=== PATIENT | female | born 1955 | race Caucasian/White ===

== ENCOUNTER → 2019-11-15 10:30 | Outpatient (BNVA) | payer MEDICARE, MEDICAID, SELFPAY | PROVIDERS: Family Provider Family Medicine; PCP Family Medicine; Visit Provider Family Medicine | DX: I10 Essential (primary) hypertension (principal); E78.5 Hyperlipidemia, unspecified; E11.9 Type 2 diabetes mellitus without complications | CPT/HCPCS: 80053; 80061; 82044; 83036; 85025 ==

== ENCOUNTER 2020-07-13 11:49 | Emergency (ER) | payer MEDICARE, MEDICAID, SELFPAY ==
[2020-07-13 11:49] VITALS: BP 119/65; PULSE 78; RESP 16; TEMP 36.5; O2SAT 98; BMI 34.0
--- NOTE | 2020-07-13 11:56 | ECG_ITS ---
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 Measurements Intervals [place] Rate: 74 P: 36 AK: 192 QRS: -38 QRSD: 82 T: 20 QT: 378 QTc: 422 Interpretive Statements SINUS RHYTHM LEFT AXIS DEVIATION [QRS AXIS < -30] PATTERN CONSISTENT WITH PULMONARY DISEASE MODERATE VOLTAGE CRITERIA FOR LVH, CONSIDER NORMAL VARIANT [MEETS CRITERIA IN ONE OF: R(aVL), S(V1), R(V5), R(V5/V6)+S(V1)] No previous ECG available for comparison Electronically Signed On 07-13-2020 17:22:04 AIR HOSE COUPLER by Selina Lambert M.D. [id number]
--- NOTE | 2020-07-13 11:56 | XRR_ITS ---
PROCEDURE INFORMATION: Exam: XR Chest, 1 View Exam date and time: 07/13/2020 11:57 AM Age: 64 years old Clinical indication: Cough and dyspnea; Additional info: Dyspnea/cough TECHNIQUE: Imaging protocol: XR of the chest Views: 1 view. COMPARISON: No relevant prior studies available. FINDINGS: Lungs: See Pleural space finding. Pleural space: Subtle platelike atelectasis versus scarring left costophrenic angle. Lungs are otherwise well aerated. Heart/Mediastinum: Unremarkable. No cardiomegaly. Bones/joints: Kelsey rods and pedicle plates stabilizing the thoracic spine. XR/XR chest 1V portable [id number] IMPRESSION: Subtle platelike atelectasis versus scarring left costophrenic angle. Lungs are otherwise well aerated.
--- NOTE | 2020-07-13 12:04 | CT_ITS ---
WS: [id number] CT ABDOMEN PELVIS TECHNIQUE: Contrast-enhanced CT of the abdomen and pelvis with coronal and sagittal reformatted image s. CLINICAL INFORMATION: abd pain COMPARISON: None. DLP: 954.[address] scans at [facility] use at least one of these dose optimization techniques: automat ed exposure control; mA and/or kV adjustment per patient size (includes targeted exams where dose is matched to clinical indication); or iterative reconstruction. FINDINGS: Hepatomegaly. Diffuse fatty infiltration of the liver. Normal GE junction. Lung bases are well aerate d. Mild fatty atrophy of the pancreas. Normal spleen. Adrenal glands are normal. No hydronephrosis. Sigmoid constipation. Sigmoid diverticulosis. No evidence of acute diverticulitis. No evidence of hig h-grade small or large bowel obstruction. Normal renal parenchymal enhancement. No hydronephrosis in either kidney. Mild renal cortical atrophy . Normal caliber abdominal aorta. Aortic calcification. Postoperative changes partially visualized pe dicle screw fixation in the lower thoracic and upper lumbar spine. Mild chronic appearing biconcave c ompression T11. CT/CT abdomen pelvis w con* [id number] IMPRESSION: 1. Diffuse fatty infiltration of the liver. 2. No acute abdominal or pelvic findings. 3. Sigmoid diverticulosis. No evidence of acute diverticulitis. 4. Prior extensive postoperative changes pedicle screw fixation lower thoracic and upper lumbar spine with thoracolumbar scoliosis. Notified Lew Peña DO at 07/13/2020 1:28 PM.
[2020-07-13 12:08] LABS: Basophils % 0.3 %; Eosinophils % 0.4 %; Hematocrit 40.9 % (37.0-47.0); Lymphocytes # 1.5 10^3/uL (0.8-4.8); Lymphocytes % 14.2 %; Mean Corpuscular HGB Conc 31.8 g/dL (30.0-36.0); Mean Corpuscular Hemoglobin 30.8 pg (28.0-34.0); Mean Corpuscular Volume 96.9 fL (81-99); Mean Platelet Volume 11.8 fL (7.4-10.4); Monocytes # 0.5 10^3/uL (0.2-0.9); Monocytes % 4.6 %; Neutrophils # 8.65 10^3/uL (1.8-7.7); Nucleated Red Blood Cells % 0 %; Platelet Count 239 10^3/cmm (130-400); Red Blood Count 4.22 10^6/uL (4.1-5.3); Red Cell Distribution Width 13.4 % (12.1-15.1); White Blood Count 10.8 10^3/uL (4.0-10.0)
[2020-07-13] MEDS: sodium chloride 0.9% 1,000 ML 999 ML IV ×2 (12:19→14:45)
--- NOTE | 2020-07-13 12:19 | W.ED.NAVMDI ---
HPI - Nausea/Vomiting/Diarrhea General: Chief complaint: Nausea/Vomiting/Diarrhea Stated complaint: N/V/D Time Seen by Provider: 07/13/20 11:51 History of Present Illness: HPI Narrative: 64-year-old female presents to the emergency room with complaints of 2 months of nausea vomiting and diarrhea. She had some hematemesis today not large amounts but some streaking in the vomitus. She has not recently been on any antibiotics she denies drinking alcohol regularly she denies any significant abdominal pain or chest pain. No shortness of breath no fever sweats or chills. MD elicited complaint: nausea and vomiting Onset (ago): week(s) Description of vomiting: blood-streaked Description of diarrhea: semi-solid and lose Associated nausea: Yes Associated abdominal pain: No Location of pain: None Severity: moderate Exacerbating factors: none Relieving factors: none Associated symtoms: Reports nausea; Denies altered mental status, anxiety, bloating, change in vision, chest pain, cough, diaphoresis, decreased urine output, dizziness, dysuria, epistaxis, fatigue, fecal incontinence, fevers/chills, headache(s), anorexia, malaise, myalgias, numbness, palpitations, rash, short of breath, syncope, tenesmus, tinnitus or weakness Review of Systems Const: Denies: fatigue, malaise or diaphoresis Eyes: Denies: change in vision ENMT: Denies: tinnitus or epistaxis Card: Denies: palpitations or syncope Resp: Denies: dyspnea, productive cough or non-productive cough GI: Reports: nausea; Denies: bloating or fecal incontinence : Denies: dysuria Skin/Breast: Denies: rash or pruritus Neuro: Denies: headache(s) Psych: Denies: anxiety PFSH ED PFSH: Medical History Chronic kidney disease, stage II (mild) CKD (chronic kidney disease), stage III COPD (chronic obstructive pulmonary disease) DDD (degenerative disc disease) Dyslipidemia Enrolled in chronic care management Essential hypertension Fibromyalgia GERD (gastroesophageal reflux disease) Osteoporosis Restless leg Type 2 diabetes mellitus, without long-term current use of insulin Surgical History H/O knee surgery History of ankle surgery History of back surgery History of oral surgery Family History Other CAD (coronary artery disease) Chronic kidney disease (CKD) Diabetes Psychiatric illness Social History Smoking and tobacco status: former smoker Alcohol intake: former Year of sobriety/quit date alcohol: 1995 Physical Exam Const: COMMON NORMALS: no acute distress EXAM LIMITATIONS: no altered mental status GENERAL APPEARANCE: cooperative and comfortable ORIENTATION/CONSCIOUSNESS: Yes awake, Yes oriented to person, Yes oriented to place and Yes oriented to time HENMT: COMMON NORMALS: normocephalic, atraumatic and hearing grossly normal bilaterally HEAD & SCALP: normocephalic and atraumatic Neck/C-Spine: COMMON NORMALS: no JVD Resp: COMMON NORMALS: normal respiratory effort, No retractions, No use of accessory muscles and clear to auscultation bilaterally AUSCULTATION: clear to auscultation bilaterally Cardio: COMMON NORMALS: no JVD, regular rate, regular rhythm and No murmurs present (Cardio) RATE: regular rate RHYTHM: regular rhythm GI: COMMON NORMALS: Soft to palpation and No hepatosplenomegaly present AUSCULTATION: Yes normoactive bowel sounds PALPATION: Yes Soft to palpation, No Tenderness to palpation present (GI), No Guarding due to palpation present (GI) and Yes No hepatosplenomegaly present Extremity: COMMON NORMALS: normal to inspection, capillary refill normal, no clubbing, cyanosis or edema, no calf tenderness and no pedal edema Neuro: SENSORIUM/ORIENTATION: Yes oriented to person, Yes oriented to place and Yes oriented to time Skin: COMMON NORMALS: no rashes or lesions noted GENERAL SKIN EXAM: no rashes or lesions noted Course Vital Signs: Vital signs: Vital Signs Temperature 97.7 F 07/13/20 11:49 Pulse Rate 78 07/13/20 11:49 Respiratory Rate 16 07/13/20 11:49 Blood Pressure 119/65 07/13/20 11:49 Pulse Oximetry 98 07/13/20 11:49 MDM - Nausea/Vomiting/Diarrhea MDM Narrative: Medical decision making narrative: Patient is feeling somewhat better her creatinine is up from her baseline usually she is 1 3 she is a 2.3 is given 2 L of fluid she is feeling better will discharge home on clear liquid diet hold her Lasix and add Zofran as needed she should follow-up the end of this week with her primary care doctor Lab Data: Labs: Lab Results 07/13/20 07/13/20 07/13/20 Range/Units 11:58 11:58 12:23 WBC 10.8 H (4.0-10.0) 10^3/ uL RBC 4.22 (4.1-5.3) 10^6/u L Hgb 13.0 (11.5-15.3) g/dL Hct 40.9 (37.0-47.0) % MCV 96.9 (81-99) fL MCH 30.8 (28.0-34.0) pg MCHC 31.8 (30.0-36.0) g/dL RDW 13.4 (12.1-15.1) % Plt Count 239 (130-400) 10^3/c mm MPV 11.8 H (7.4-10.4) fL Neut % (Auto) 80.0 % Lymph % (Auto) 14.2 % [place] % (Auto) 4.6 % Eos % (Auto) 0.4 % Baso % (Auto) 0.3 % Neut # (Auto) 8.65 H (1.8-7.7) 10^3/u L Lymph # (Auto) 1.5 (0.8-4.8) 10^3/u L [place] # (Auto) 0.5 (0.2-0.9) 10^3/u L Eos # (Auto) 0.0 (0.0-0.8) 10^3/u L Baso # (Auto) 0.0 (0.0-0.1) 10^3/u L Nucleated RBC % (a uto) 0 % Nucleated RBCs # 0.0 /100WBC Sodium 130 L (136-145) mmol/L Potassium 3.9 (3.5-5.1) mmol/L Chloride 94 L (98-107) mmol/L Carbon Dioxide 21 L (22-29) mmol/L Anion Gap 18.9 (5-19) BUN 42 H (8-23) mg/dL Creatinine 2.3 H (0.5-0.9) mg/dL GFR Calculation 21.4 L (90-130) mL/min Glucose 131 H (65-115) mg/dL Calculated Osmolal ity 282 L (285-295) mOsm/k g Calcium 10.1 (8.5-10.5) mg/dL Magnesium 1.7 (1.7-2.3) mg/dL Total Bilirubin 0.3 (0.15-1.2) mg/dL AST 11 (0-32) U/L ALT < 5 (0-33) U/L Alkaline Phosphata se 75 (35-105) IU/L Creatine Kinase 37 (26-192) U/L Total Protein 7.6 (6.6-8.7) g/dL Albumin 4.2 (3.5-5.2) g/dL Globulin 3.4 (1.3-4.6) g/dL Lipase 23 (13-60) U/L Urine Color Straw (Yellow) Urine Appearance Clear (CLEAR) Urine pH 5 (5-7) Ur Specific Gravit y 1.010 (1.005-1.030) Urine Protein Neg (Negative) Urine Glucose (UA) Norm (Normal) Urine Ketones Negative (Negative) Urine Blood Neg (Negative) Urine Nitrate Negative (Negative) Urine Bilirubin Neg (Negative) Urine Urobilinogen Norm (Negative) mg/dL Ur Leukocyte Ashleigh ase Negative (Negative) Discharge Plan Discharge Patient Disposition: Home Clinical Impression: Nausea & vomiting, Essential hypertension, CKD (chronic kidney disease), stage III Clinical Impression: (Ruled Out): Type 2 diabetes mellitus, without long-term current use of insulin Condition: Stable Prescriptions: New Zofran 4 mg tablet 4 mg PO Q6H PRN (Reason: nausea and vomiting) Qty: 20 RF: 0 Held furosemide 20 mg tablet 20 mg PO DAILY PRN (Reason: edema) Qty: 30 RF: 2 Hold Instructions: Resume on 07/18/20. No Action pregabalin 150 mg capsule 150 mg PO BID Qty: 180 RF: 1 (DME) wheelchair repair, new battery and tires See Rx Instructions .Route .MEDSUPPLY Qty: 1 RF: 0 lisinopril 2.5 mg tablet 2.5 mg PO DAILY Qty: 30 RF: 0 simvastatin 40 mg tablet 40 mg PO DAILY Qty: 30 RF: 0 alendronate [Fosamax] 70 mg tablet 70 mg PO .once a week Qty: 4 RF: 2 Symbicort 80-4.5 mcg/actuation HFA aerosol inhaler 2 puff INHALATION BID 90 Days Qty: 10.2 RF: 1 celecoxib 100 mg capsule 100 mg PO DAILY Qty: 90 RF: 1 Combivent Respimat 20-100 mcg/actuation mist 1 puff INHALATION Q4H PRN (Reason: shortness of breath or wheezing) 90 Days Qty: 4 RF: 1 tizanidine 4 mg capsule 4 mg PO Q8H Qty: 270 RF: 1 zonisamide 100 mg capsule 400 mg PO .qhs Qty: 360 RF: 1 Discharge Orders: Discharge ED (Routine); Ordered 07/13/20 Ordered By: Lew Peña Referrals: Joan Perez DO [Primary Care Provider] - Discharge Diet: Usual diet Discharge Activity: Increase activity as tolerated Activity Restrictions/Additional Instructions: Clear liquid diet for 24 to 48 hours Coding Level of Care Code ED Learning Support Resource Room Teacher for Maryg Fwd Exam Comprehensive
[2020-07-13 12:27] LABS: Alanine Aminotransferase < 5 U/L (0-33); Albumin Level 4.2 g/dL (3.5-5.2); Alkaline Phosphatase 75 IU/L (35-105); Anion Gap 18.9 (5-19); Aspartate Amino Transferase 11 U/L (0-32); Blood Urea Nitrogen 42 mg/dL (8-23); Calcium 10.1 mg/dL (8.5-10.5); Carbon Dioxide 21 mmol/L (22-29); Chloride 94 mmol/L (98-107); Creatine Phosphokinase 37 U/L (26-192); Globulin 3.4 g/dL (1.3-4.6); Glomerular Filtration Rate 21.4 mL/min (90-130); Glucose 131 mg/dL (65-115); Lipase 23 U/L (13-60); Magnesium 1.7 mg/dL (1.7-2.3); Osmolality Calculated 282 mOsm/kg (285-295); Potassium 3.9 mmol/L (3.5-5.1); Sodium 130 mmol/L (136-145); Total Bilirubin 0.3 mg/dL (0.15-1.2); Total Protein 7.6 g/dL (6.6-8.7)
[2020-07-13 12:33] LABS: Add Urine Microscopic? NO
[2020-07-13 12:36] LABS: Bilirubin Urine Neg (Negative); Blood Urine Neg (Negative); Glucose Urine UA Norm (Normal); Ketones Urine Negative (Negative); Leukocyte Esterase Urine Negative (Negative); Nitrate Urine Negative (Negative); Protein Urine Neg (Negative); Urine Appearance Clear (CLEAR); Urine Color Straw (Yellow); Urobilinogen Urine Norm (Negative); pH Urine 5 (5-7)
[2020-07-13] MEDS: hydrocortisone 100 mg/2 mL SDV IVP (13:00)
[2020-07-13] MEDS: diphenhydrAMINE 50 mg/mL SDV 1mL IVP (13:00)
[2020-07-13] MEDS: ondansetron 2 mg/ML SDV 2 mL 4 MG IVP (13:01)
[2020-07-13] MEDS: iodixanol 320 mg/mL 100mL Btl IV (13:11)
[2020-07-13 13:26] VITALS: BP 112/63; PULSE 64; RESP 16; O2SAT 100
[2020-07-13 14:00] VITALS: BP 101/46; PULSE 65; RESP 16; O2SAT 100
[2020-07-13 14:45] VITALS: BP 123/77; PULSE 88; RESP 16; O2SAT 98
[2020-07-13 15:20] VITALS: BP 121/68; PULSE 72; RESP 16; O2SAT 100
--- NOTE | 2020-07-13 16:05 | PC.NURSE ---
Read and agree with assessment.
--- NOTE | 2020-07-14 10:50 | DCPLANNER ---
finance business manager had message to schedule a follow up appointment for patient with Dr. Perez, primary care physician. finance business manager called the office of Dr. Perez, spoke with Aracely, gave clinic patients information. A follow up appointment was scheduled for Friday, July 17, 2020 at 1:[address] Perez. finance business manager called phone number [phone], left a voicemail for patient to return case packer phone call.
--- NOTE | 2020-07-17 10:53 | DCPLANNER ---
youth manager called to give patient the appointment information. youth manager was unable to reach patient at this time, a voicemail was left for patient to return employment case manager phone call. youth manager called the clinic, and told the clinic that employment case manager was unable to inform patient of this appointment.
== END 2020-07-13 15:20 | disposition home or self-care (01) ==
PROVIDERS: Emergency Provider Family Medicine; PCP Family Medicine
DX: I12.9 Hypertensive chronic kidney disease with stage 1 through stage 4 chronic kidney disease, or unspecified chronic kidney disease (principal); E11.22 Type 2 diabetes mellitus with diabetic chronic kidney disease; N18.30 Chronic kidney disease, stage 3 unspecified; R11.2 Nausea with vomiting, unspecified; J44.9 Chronic obstructive pulmonary disease, unspecified; E78.5 Hyperlipidemia, unspecified; Z87.891 Personal history of nicotine dependence
CPT/HCPCS: 12345; 71045; 74177; 80053; 81003; 82550; 83690; 83735; 85025; 93005; 96361; 96374; 96375; 99283; 99284; J1200; J1720; J2405; J7030; Q9967

== ENCOUNTER → 2020-10-22 11:53 | Outpatient (BNVA) | payer MEDICARE, MEDICAID, SELFPAY | PROVIDERS: PCP Family Medicine; Visit Provider Family Medicine | DX: I10 Essential (primary) hypertension (principal); E11.9 Type 2 diabetes mellitus without complications; E78.5 Hyperlipidemia, unspecified; F32.9 Major depressive disorder, single episode, unspecified | CPT/HCPCS: 80053; 80061; 82043; 83036; 85025 ==

== ENCOUNTER → 2021-04-23 11:35 | Outpatient (BNVA) | payer MEDICARE, MEDICAID, SELFPAY | PROVIDERS: PCP Family Medicine; Visit Provider Family Medicine | DX: E78.5 Hyperlipidemia, unspecified (principal); E11.22 Type 2 diabetes mellitus with diabetic chronic kidney disease; I12.9 Hypertensive chronic kidney disease with stage 1 through stage 4 chronic kidney disease, or unspecified chronic kidney disease; N18.31 Chronic kidney disease, stage 3a | CPT/HCPCS: 80053; 80061; 83036; 85025 ==

== ENCOUNTER → 2021-04-30 11:40 | Outpatient (BNVA) | payer MEDICARE, MEDICAID, SELFPAY | PROVIDERS: PCP Family Medicine; Visit Provider Family Medicine | DX: D53.9 Nutritional anemia, unspecified (principal) | CPT/HCPCS: 82607 ==

== ENCOUNTER → 2021-08-17 10:57 | Outpatient (BNVA) | payer MEDICAID, SELFPAY | PROVIDERS: PCP Family Medicine; Visit Provider Family Medicine | DX: E53.8 Deficiency of other specified B group vitamins (principal); T17.908A Unspecified foreign body in respiratory tract, part unspecified causing other injury, initial encounter | CPT/HCPCS: 71046; 82607 ==

== ENCOUNTER → 2021-11-11 14:52 | Outpatient (BNVA) | payer MEDICAID, SELFPAY | PROVIDERS: PCP Family Medicine; Visit Provider Emergency Medicine | DX: T17.908A Unspecified foreign body in respiratory tract, part unspecified causing other injury, initial encounter (principal); R06.89 Other abnormalities of breathing; R06.02 Shortness of breath; J43.1 Panlobular emphysema | CPT/HCPCS: 71046 ==

== ENCOUNTER 2022-12-29 06:00 | Outpatient (RCR) | payer MEDICARE, MEDICAID, SELFPAY | END 2022-12-30 23:59 | disposition home or self-care (01) | LOC: SOT 06:00 | PROVIDERS: Visit Provider Family Medicine | DX: M25.562 Pain in left knee (principal) | CPT/HCPCS: 97167 ==

== ENCOUNTER → 2023-10-02 12:55 | Outpatient (BNVA) | payer MEDICARE, MEDICAID, SELFPAY | PROVIDERS: PCP Family Medicine; Visit Provider Nurse Practitioner Family | DX: L98.422 Non-pressure chronic ulcer of back with fat layer exposed (principal) | CPT/HCPCS: 11042; 99213 ==

== ENCOUNTER → 2023-10-16 13:03 | Outpatient (BNVA) | payer MEDICARE, MEDICAID, SELFPAY | PROVIDERS: PCP Family Medicine; Visit Provider Nurse Practitioner Family | DX: L98.422 Non-pressure chronic ulcer of back with fat layer exposed (principal) | CPT/HCPCS: 11042 ==